=== PATIENT | female | born 1945 | race Caucasian/White ===

== ENCOUNTER 2020-04-01 05:10 | Inpatient (IN) | payer MEDICARE ==
[~2020-04-01] VITALS: Ht 149.9 cm; Wt 67.1 kg
[~2020-04-01 05:10] MED LIST: BETAPACE80 MG PO; CEFDINIR300 MG PO; ELIQUIS 2.5 MG2.5 MG PO; ELIQUIS 5 MG TAB5 MG PO; IMDUR ER TAB 6060 MG PO; LEVAQUIN750 MG PO; LOPRESSOR 25 MG25 MG PO; MEDROL4 MG PO; MULTAQ400 MG PO; PREDNISONE 20 M20 MG PO; PROAIR HFA8.5 GM INH; PROTONIX40 MG PO; RANEXA500 MG PO; SYMBICORT 16010.2 GM INH; SYNTHROID100 MCG PO
[2020-04-01 05:47] LABS: RED BLOOD COUNT 3.06 M/UL (4.00-5.10); WHITE BLOOD COUNT 6.2 K/UL (4.5-11.0)
[2020-04-01 06:04] LABS: HEMOGLOBIN 5.8 gm/dl (12.3-15.3)
[2020-04-01 16:56] LABS: HEMOGLOBIN 7.5 gm/dl (12.3-15.3); RED BLOOD COUNT 3.48 M/UL (4.00-5.10)
[2020-04-02 02:16] LABS: HEMOGLOBIN 8.7 gm/dl (12.3-15.3); RED BLOOD COUNT 3.77 M/UL (4.00-5.10)
[2020-04-02 02:32] LABS: WHITE BLOOD COUNT 14.5 K/UL (4.5-11.0)
[2020-04-03 06:40] LABS: HEMOGLOBIN 8.2 gm/dl (12.3-15.3); RED BLOOD COUNT 3.6 M/UL (4.00-5.10)
[2020-04-03 06:45] LABS: WHITE BLOOD COUNT 8.5 K/UL (4.5-11.0)
--- NOTE | 2020-04-03 22:58 | NUR ---
1899- PT NOTED TO HAVE ONLY DRANK APPROXIMATELY 1/4 OF GOLYTELY. PT EDUCATED ON IMPORTANCE OF COMPLETING GOLYTELY BY MIDNIGHT. PT STATED SHE WAS NAUSEOUS. ZOFRAN ADMINISTERED. 2029- PT STATES NAUSEA RESOLVED. APPROXIMATELY 1/3 OF GOLYTELY CONSUMED. PT AGAIN EDUCATED ON IMPORTANCE OF FINISHING GOLYTELY BY MIDNIGHT AND POSSIBILITY OF HAVING PROCEDURE CANCELED OR HAVING POOR VISUALIZATION DURING PROCEDURE D/T NOT ENOUGH BEING CONSUMED. VERBALIZED UNDERSTANDING.
[2020-04-04 05:08] LABS: HEMOGLOBIN 8.6 gm/dl (12.3-15.3); RED BLOOD COUNT 3.9 M/UL (4.00-5.10); WHITE BLOOD COUNT 7.6 K/UL (4.5-11.0)
[2020-04-04 14:29] LABS: HEMOGLOBIN 9.4 gm/dl (12.3-15.3)
[2020-04-05 05:56] LABS: HEMOGLOBIN 8.3 gm/dl (12.3-15.3); RED BLOOD COUNT 3.66 M/UL (4.00-5.10); WHITE BLOOD COUNT 4.4 K/UL (4.5-11.0)
[2020-04-05] MEDS ORDERED: LOPRESSOR 25 MG25 MG PO (11:27)
[2020-04-05] MEDS ORDERED: FEOSOL325 MG PO (11:51)
== END 2020-04-05 15:15 | disposition home or self-care (01) | DRG 812 ==
LOC: ER1 05:10 → CDU 07:00 → M/S 07:00
PROVIDERS: Family Medicine; Internal Medicine; Internal Medicine Infectious Disease; ADMIT Internal Medicine
PROC: 30233N1 Transfusion of Nonautologous Red Blood Cells into Peripheral Vein, Percutaneous Approach (ICD-10-PCS; principal; 2020-04-01)
PROC: 0DJ08ZZ Inspection of Upper Intestinal Tract, Via Natural or Artificial Opening Endoscopic (ICD-10-PCS; 2020-04-04)
DX: D62 Acute posthemorrhagic anemia (principal); K92.2 Gastrointestinal hemorrhage, unspecified; I50.32 Chronic diastolic (congestive) heart failure; J96.11 Chronic respiratory failure with hypoxia; Z20.822 Contact with and (suspected) exposure to COVID-19; I48.0 Paroxysmal atrial fibrillation; I11.0 Hypertensive heart disease with heart failure; J44.9 Chronic obstructive pulmonary disease, unspecified; K31.7 Polyp of stomach and duodenum; I25.10 Atherosclerotic heart disease of native coronary artery without angina pectoris; F17.210 Nicotine dependence, cigarettes, uncomplicated; E03.9 Hypothyroidism, unspecified; Z79.899 Other long term (current) drug therapy; Z95.1 Presence of aortocoronary bypass graft; Z79.01 Long term (current) use of anticoagulants; Z28.21 Immunization not carried out because of patient refusal
CPT/HCPCS: 36415; 36430; 36600; 71045; 80048; 80053; 82272; 82550; 82553; 82728; 82803; 83540; 83550; 83605; 83874; 83880; 84484; 85014; 85018; 85025; 85027; 85610; 86850; 86900; 86901; 86920; 87040; 90471; 93005; 94640; 94664; 94760; 96374; 96375; 99285; C9113; G0378; J2250; J2405; J2930; J3010; J7030; J7040; J7050; P9016; U0002

== ENCOUNTER → 2021-12-07 | Outpatient (CLI) | payer MEDICARE ==
[~2021-12-07] MED LIST changes: +FEOSOL325 MG PO
== END ==
LOC: KOH-I 16:24
DX: I25.10 Atherosclerotic heart disease of native coronary artery without angina pectoris (principal); R06.02 Shortness of breath
CPT/HCPCS: 71046; 73522

== ENCOUNTER 2021-12-11 11:17 | Emergency (ER) | payer MEDICARE ==
[2021-12-11 12:25] LABS: HEMOGLOBIN 14.8 gm/dl (12.3-15.3); RED BLOOD COUNT 4.57 M/UL (4.00-5.10); WHITE BLOOD COUNT 4.9 K/UL (4.5-11.0)
[2021-12-11] MEDS ORDERED: ONDANSETRON ODT4 MG PO (14:03)
[2021-12-12] MEDS ORDERED: CARVEDILOL3.125 MG PO (16:53)
[2021-12-12] MEDS ORDERED: COMBIVENT RESPIM4 GM INH (16:54)
== END 2021-12-11 15:07 | disposition home or self-care (01) ==
LOC: ER1 11:17
PROVIDERS: Nurse Practitioner
DX: U07.1 COVID-19 (principal); J44.9 Chronic obstructive pulmonary disease, unspecified; I11.9 Hypertensive heart disease without heart failure; F17.210 Nicotine dependence, cigarettes, uncomplicated; Z88.1 Allergy status to other antibiotic agents; Z79.899 Other long term (current) drug therapy
CPT/HCPCS: 36600; 71045; 80053; 82550; 82553; 82803; 84484; 85025; 93005; 96374; 96375; 99285; J1100; J2405; U0002

== ENCOUNTER 2021-12-12 11:12 | Observation (INO) | payer MEDICARE ==
[~2021-12-12] VITALS: Ht 149.9 cm; Wt 60.3 kg
[~2021-12-12 11:12] MED LIST changes: +ONDANSETRON ODT4 MG PO
[2021-12-12 12:34] LABS: HEMOGLOBIN 13.4 gm/dl (12.3-15.3); RED BLOOD COUNT 4.19 M/UL (4.00-5.10)
[2021-12-12] MEDS ORDERED: CARVEDILOL3.125 MG PO (16:53)
[2021-12-12] MEDS ORDERED: COMBIVENT RESPIM4 GM INH (16:54)
[2021-12-13 06:29] LABS: RED BLOOD COUNT 3.4 M/UL (4.00-5.10); WHITE BLOOD COUNT 6.3 K/UL (4.5-11.0)
[2021-12-14] MEDS ORDERED: OMNICEF 300 MG300 MG PO (15:53)
[2021-12-14] MEDS ORDERED: DECADRON6 MG PO (15:53)
[2021-12-14] MEDS ORDERED: BUDESONIDE0.5 MG/2 M NEB (15:53)
[2021-12-14] MEDS ORDERED: DOXYCYCLINE HY100 M2 PO (16:24)
[2021-12-14] MEDS ORDERED: IPRAT-ALBUT 0.5-3 ML NEB (16:24)
== END 2021-12-14 17:23 | disposition home health service (06) ==
LOC: ER1 11:12 → CDU 13:32 → MED SURG 4 13:32
PROVIDERS: Nurse Practitioner; ADMIT Internal Medicine
DX: N17.9 Acute kidney failure, unspecified (principal); J44.9 Chronic obstructive pulmonary disease, unspecified; M16.10 Unilateral primary osteoarthritis, unspecified hip; U07.1 COVID-19; J96.11 Chronic respiratory failure with hypoxia; I48.0 Paroxysmal atrial fibrillation; E03.9 Hypothyroidism, unspecified; I25.10 Atherosclerotic heart disease of native coronary artery without angina pectoris; I11.0 Hypertensive heart disease with heart failure; I50.32 Chronic diastolic (congestive) heart failure; F17.210 Nicotine dependence, cigarettes, uncomplicated; Z98.61 Coronary angioplasty status; Z99.81 Dependence on supplemental oxygen; Z95.1 Presence of aortocoronary bypass graft; Z88.5 Allergy status to narcotic agent; Z88.8 Allergy status to other drugs, medicaments and biological substances; Z88.1 Allergy status to other antibiotic agents; Z91.041 Radiographic dye allergy status
CPT/HCPCS: 70450; 71046; 73502; 80048; 80053; 82550; 82553; 84484; 85025; 85027; 87086; 93005; 94640; 94664; 94760; 96361; 96374; 96375; 96376; 97161; 97165; 97530; 99285; G0378; J0696; J1100

== ENCOUNTER 2021-12-16 02:30 | Inpatient (IN) | payer MEDICARE ==
[~2021-12-16] VITALS: Ht 149.9 cm; Wt 63.6 kg
[~2021-12-16 02:30] MED LIST changes: +BUDESONIDE0.5 MG/2 M NEB; +CARVEDILOL3.125 MG PO; +COMBIVENT RESPIM4 GM INH; +DECADRON6 MG PO; +DOXYCYCLINE HY100 M2 PO; +IPRAT-ALBUT 0.5-3 ML NEB; +OMNICEF 300 MG300 MG PO
[2021-12-16 03:05] LABS: HEMOGLOBIN 11.1 gm/dl (12.3-15.3); RED BLOOD COUNT 3.49 M/UL (4.00-5.10); WHITE BLOOD COUNT 5.7 K/UL (4.5-11.0)
[2021-12-16] MEDS ORDERED: ASPIRIN EC81 MG PO (08:24)
[2021-12-16] MEDS ORDERED: IBUPROFEN200 MG PO (08:25)
[2021-12-16] MEDS ORDERED: COMBIVENT RESPIM4 GM INH (09:24)
[2021-12-17 01:55] LABS: HEMOGLOBIN 11.1 gm/dl (12.3-15.3); RED BLOOD COUNT 3.56 M/UL (4.00-5.10); WHITE BLOOD COUNT 5.5 K/UL (4.5-11.0)
[2021-12-18 07:17] LABS: HEMOGLOBIN 11.6 gm/dl (12.3-15.3); RED BLOOD COUNT 3.69 M/UL (4.00-5.10); WHITE BLOOD COUNT 6.7 K/UL (4.5-11.0)
[2021-12-19 02:30] LABS: HEMOGLOBIN 11.6 gm/dl (12.3-15.3); RED BLOOD COUNT 3.68 M/UL (4.00-5.10); WHITE BLOOD COUNT 8.3 K/UL (4.5-11.0)
== END 2021-12-19 19:00 | disposition short-term general hospital (02) | DRG 177 ==
LOC: ER1 02:30 → CDU 04:04 → PROG CARE 08:12 → CCU 12-19 10:53
PROVIDERS: Internal Medicine; Physician Assistant; ADMIT Family Medicine
PROC: 8E0ZXY6 Isolation (ICD-10-PCS; principal; 2021-12-16)
PROC: XW033E5 Introduction of Remdesivir Anti-infective into Peripheral Vein, Percutaneous Approach, New Technology Group 5 (ICD-10-PCS; 2021-12-16)
PROC: 3E0333Z Introduction of Anti-inflammatory into Peripheral Vein, Percutaneous Approach (ICD-10-PCS; 2021-12-16)
PROC: 5A0945A Assistance with Respiratory Ventilation, 24-96 Consecutive Hours, High Flow/Velocity Cannula (ICD-10-PCS; 2021-12-16)
PROC: B24BZZZ Ultrasonography of Heart with Aorta (ICD-10-PCS; 2021-12-17)
DX: U07.1 COVID-19 (principal); I50.33 Acute on chronic diastolic (congestive) heart failure; J12.82 Pneumonia due to coronavirus disease 2019; J96.21 Acute and chronic respiratory failure with hypoxia; J15.9 Unspecified bacterial pneumonia; N17.9 Acute kidney failure, unspecified; I69.354 Hemiplegia and hemiparesis following cerebral infarction affecting left non-dominant side; J20.8 Acute bronchitis due to other specified organisms; I45.81 Long QT syndrome; I48.0 Paroxysmal atrial fibrillation; I11.0 Hypertensive heart disease with heart failure; E03.9 Hypothyroidism, unspecified; E86.0 Dehydration; J20.9 Acute bronchitis, unspecified; T50.2X5A Adverse effect of carbonic-anhydrase inhibitors, benzothiadiazides and other diuretics, initial encounter; I49.5 Sick sinus syndrome; J43.9 Emphysema, unspecified; I25.10 Atherosclerotic heart disease of native coronary artery without angina pectoris; F17.210 Nicotine dependence, cigarettes, uncomplicated; Z99.81 Dependence on supplemental oxygen; Z91.81 History of falling; Z79.01 Long term (current) use of anticoagulants; Z95.1 Presence of aortocoronary bypass graft; Z90.49 Acquired absence of other specified parts of digestive tract; Z88.5 Allergy status to narcotic agent; Z88.8 Allergy status to other drugs, medicaments and biological substances; Z91.030 Bee allergy status; Z91.041 Radiographic dye allergy status; Z95.5 Presence of coronary angioplasty implant and graft; Z79.82 Long term (current) use of aspirin; Z98.891 History of uterine scar from previous surgery
CPT/HCPCS: ECHO; 36415; 36600; 70450; 71045; 71250; 78580; 80048; 80053; 81001; 82550; 82553; 82803; 82962; 83605; 83615; 83735; 83880; 84439; 84443; 84484; 85025; 85027; 85379; 86140; 87040; 92526; 92610; 93005; 93306; 93970; 94640; 94664; 94760; 94762; 96374; 96375; 99285; A9540; J0248; J0696; J1100; J1650; J1720; J1953; J2060; J2185; J7030; Q9967; U0002